=== PATIENT | female | born 1955 | race Caucasian/White ===

== ENCOUNTER 2018-04-18 17:12 | Emergency (ER) | payer OTHER ==
[~2018-04-18] VITALS: Ht 160 cm; Wt 55.0 kg
[2018-04-18] MEDS ORDERED: SODIUM CHLORIDE 0.9% 1,000 ML IV ONE (17:49)
[2018-04-18] MEDS ORDERED: LORAZEPAM 2MG/ML CPJ IV ONE (18:45)
[2018-04-18 18:55] LABS: BASOPHILS % 0.9 % (0.0-2.0); EOSINOPHILS % 1.5 % (0.0-5.0); HEMATOCRIT. 29.9 % (36.0-48.0); LYMPHOCYTES % 49.1 % (20.0-50.0); MEAN CORPUSCULAR HEMOGLOBIN 29.8 pg (28.0-32.0); MEAN CORPUSCULAR VOLUME 88.9 fL (81.0-99.0); MEAN PLATELET VOLUME 6.8 fl (7.4-10.4); NEUTROPHILS % 42.5 % (40.0-76.0); PLATELET 239 x1000/uL (130-400); RED BLOOD CELL COUNT 3.36 mill/uL (4.2-5.4); RED CELL DISTRIBUTION WIDTH 17.9 % (11.6-14.6)
[2018-04-18] MEDS ORDERED: LORAZEPAM 2MG/ML CPJ IM ONE (19:00)
[2018-04-18 19:02] LABS: INR 1.1
[2018-04-18 19:03] LABS: CHLORIDE 106 mEq/L (98-107)
[2018-04-18 19:07] LABS: ETHANOL BLOOD 259 mg/dL
[2018-04-18 19:11] LABS: AMMONIA 29 uMol/L (<32)
[2018-04-18 19:12] LABS: CREATINE KINASE 80 IU/L (26-192)
[2018-04-18 19:14] LABS: CARBAMAZEPINE < 0.5 ug/mL (4-12); VALPROIC ACID < 3.0 ug/mL (50-100)
[2018-04-18 19:16] LABS: PHENOBARBITAL < 2.1 ug/mL (15.0-40.0)
[2018-04-18 20:07] LABS: BG BASE EXCESS -2.8 mmol/L (-2.0-2.0); BG CARBOXYHEMOGLOBIN 0.3 % (0.5-1.5); BG DEOXYHEMOGLOBIN 9.9 % (0.0-5.0); BG FRACTION INSPIRED OXYGEN 21; BG HCO3 ACT 22.3 mmol/L (22.0-26.0); BG METHEMOGLOBIN 0.4 % (0.0-1.5); BG OXYHEMOGLOBIN 89.4 % (94.0-97.0); BG PH 7.365 (7.350-7.450); BG PO2 67.9 mmHg (75.0-100.0); BG SAMPLE SITE LEFT RADIAL; BG TOTAL HEMOGLOBIN 10.5 g/dL (12.0-18.0); BG VENT MODE ROOM AIR
[2018-04-18] MEDS ORDERED: FOLIC ACID 1 MG, THIAMINE HCL 100 MG, MVI, ADULT NO.1 10 ML in DEXTROSE 5% WATER 1,000 ML IV ONE ×4 (20:45)
[2018-04-18] MEDS ORDERED: KCL 20MEQ/100ML PREMIX 100 ML IV ONE (20:45)
[2018-04-19 05:15] VITALS: BP 127/51
== END 2018-04-19 05:45 | disposition home or self-care (01) ==
LOC: ER 18:07
DX: G93.40 Encephalopathy, unspecified (principal); E86.0 Dehydration; T51.91XA Toxic effect of unspecified alcohol, accidental (unintentional), initial encounter; Y92.9 Unspecified place or not applicable; I10 Essential (primary) hypertension; R56.9 Unspecified convulsions; F10.20 Alcohol dependence, uncomplicated; Y90.8 Blood alcohol level of 240 mg/100 ml or more
CPT/HCPCS: 36415; 36600; 70450; 71045; 80053; 80156; 80165; 80184; 80185; 82140; 82375; 82550; 82805; 82962; 83605; 84443; 84484; 85025; 85610; 93005; 96365; 96372; 99285; G0482; J2060; J3411; J3480; J3490; J7030; J7070; Z7610; A4315

== ENCOUNTER 2018-04-19 12:04 | Emergency (ER) | payer OTHER ==
[~2018-04-19] VITALS: Ht 157.5 cm; Wt 68.0 kg
[2018-04-19 17:47] LABS: BASOPHILS % 0.9 % (0.0-2.0); EOSINOPHILS % 1.4 % (0.0-5.0); HEMATOCRIT. 30.9 % (36.0-48.0); HEMOGLOBIN. 10.3 g/dL (12.0-16.0); LYMPHOCYTES % 46.9 % (20.0-50.0); MEAN CORPUSCULAR HEMOGLOBIN 29.4 pg (28.0-32.0); MEAN CORPUSCULAR VOLUME 88.5 fL (81.0-99.0); MEAN PLATELET VOLUME 6.6 fl (7.4-10.4); MONOCYTES % 7.2 % (2.0-8.0); NEUTROPHILS % 43.6 % (40.0-76.0); PLATELET 220 x1000/uL (130-400); RED CELL DISTRIBUTION WIDTH 17.8 % (11.6-14.6)
[2018-04-19 17:53] LABS: CHLORIDE 106 mEq/L (98-107)
[2018-04-19 17:54] LABS: INR 1.1; PROTHROMBIN TIME 11.4 sec (9.4-11.6)
[2018-04-19 17:58] LABS: HCG SCREEN NEGATIVE
[2018-04-20 09:10] VITALS: BP 133/82
== END 2018-04-20 09:25 | disposition home or self-care (01) ==
LOC: ER 12:04
DX: F10.229 Alcohol dependence with intoxication, unspecified (principal); I10 Essential (primary) hypertension; R79.1 Abnormal coagulation profile
CPT/HCPCS: 36415; 70450; 80053; 80307; 80329; 84703; 85025; 85610; 93005; 99285; G0482; Z7610

== ENCOUNTER 2018-04-21 12:25 | Inpatient (IN) | payer OTHER ==
[~2018-04-21] VITALS: Ht 162.6 cm; Wt 56.2 kg
[2018-04-21 14:56] LABS: CLARITY URINE CLEAR (CLEAR); COLOR URINE YELLOW (YELLOW); KETONES URINE NEGATIVE (NEGATIVE); LEUKOCYTE ESTERASE URINE 2+ (NEGATIVE); NITRITE URINE NEGATIVE (NEGATIVE); OCCULT BLOOD URINE NEGATIVE (NEGATIVE); PH URINE 6.5 (4.5-8.0); PROTEIN URINE NEGATIVE (NEGATIVE); SPECIFIC GRAVITY URINE 1.003 (1.005-1.030); UROBILINOGEN URINE 0.2 E.U./dL (0.2-1.0)
[2018-04-21 15:00] LABS: BASOPHILS % 0.5 % (0.0-2.0); EOSINOPHILS % 0.9 % (0.0-5.0); HEMATOCRIT. 33.5 % (36.0-48.0); HEMOGLOBIN. 11.1 g/dL (12.0-16.0); LYMPHOCYTES % 21.1 % (20.0-50.0); MEAN CORPUSCULAR HEMOGLOBIN 29.4 pg (28.0-32.0); MEAN CORPUSCULAR VOLUME 88.5 fL (81.0-99.0); MEAN PLATELET VOLUME 7.1 fl (7.4-10.4); MONOCYTES % 8.2 % (2.0-8.0); NEUTROPHILS % 69.3 % (40.0-76.0); PLATELET 215 x1000/uL (130-400); RED BLOOD CELL COUNT 3.79 mill/uL (4.2-5.4); RED CELL DISTRIBUTION WIDTH 17.6 % (11.6-14.6)
[2018-04-21 15:06] LABS: CHLORIDE 99 mEq/L (98-107); INR 1.1; PROTHROMBIN TIME 11.8 sec (9.4-11.6)
[2018-04-21 15:11] LABS: ETHANOL BLOOD 136 mg/dL
[2018-04-21 15:13] LABS: *AMPHETAMINES SCREEN URINE NEGATIVE (NEGATIVE); *BARBITURATES SCREEN URINE NEGATIVE (NEGATIVE); CANNABINOID URINE SCREEN NEGATIVE (NEGATIVE); OPIATES URINE SCREEN NEGATIVE (NEGATIVE); PHENCYCLIDINE URINE SCREEN NEGATIVE (NEGATIVE)
[2018-04-21 15:14] LABS: *BENZODIAZEPINES SCREEN URINE NEGATIVE (NEGATIVE); *COCAINE SCREEN URINE PRESUMTIVE POSITIVE (NEGATIVE); METHADONE URINE SCREEN NEGATIVE (NEGATIVE)
[2018-04-21] MEDS: VANCOMYCIN 1 G PREMIX 200 ML IV SCH ×2 (15:44→16:57)
[2018-04-21] MEDS ORDERED: SODIUM CHLORIDE 0.9% 1000ML BAG (SEPSIS BOLUS) IV ONE (15:45)
[2018-04-21] MEDS ORDERED: PIPERACILLIN/TAZOBACTAM 3.375GM/50ML PREMIX IV ONE (15:45)
[2018-04-21] MEDS ORDERED: VANCOMYCIN 1 G PREMIX 200 ML IV SCH (16:45)
[2018-04-21] MEDS ORDERED: ACETAMINOPHEN 325MG TABLET PO PRN (16:45)
[2018-04-21] MEDS ORDERED: DOCUSATE SODIUM 100MG CAPSULE PO PRN (16:45)
[2018-04-21] MEDS ORDERED: IPRATROPIUM/ALBUTEROL 0.5-3(2.5)MG/3ML NEB INH PRN (16:45)
[2018-04-21] MEDS ORDERED: HYDROCODONE/APAP 7.5/325MG 1 TAB TABLET PO PRN (16:45)
[2018-04-21] MEDS ORDERED: ONDANSETRON HCL 4MG/2ML VIAL IV PRN (16:45)
[2018-04-21] MEDS ORDERED: CLONIDINE 0.1MG TABLET PO PRN (16:45)
[2018-04-21 18:40] VITALS: BP 128/76
[2018-04-21 20:00] VITALS: BP 132/83
[2018-04-21 20:45] VITALS: BP 132/71
[2018-04-21] MEDS ORDERED: LEVOFLOXACIN 500MG PREMIX 100 ML IV SCH (21:00)
[2018-04-21] MEDS: ENOXAPARIN 40MG/0.4ML SYR SUBCUT SCH (21:04)
[2018-04-21] MEDS: VANCOMYCIN 750 MG PREMIX 150 ML IV SCH (22:36)
[2018-04-22] VITALS: BP 120/66
[2018-04-22 04:00] VITALS: BP 140/81
[2018-04-22 07:31] LABS: BASOPHILS % 0.7 % (0.0-2.0); EOSINOPHILS % 2.3 % (0.0-5.0); HEMOGLOBIN. 10.6 g/dL (12.0-16.0); LYMPHOCYTES % 28.8 % (20.0-50.0); MEAN CORPUSCULAR HEMOGLOBIN 29.7 pg (28.0-32.0); MEAN CORPUSCULAR VOLUME 89.7 fL (81.0-99.0); MEAN PLATELET VOLUME 7.7 fl (7.4-10.4); MONOCYTES % 10.1 % (2.0-8.0); NEUTROPHILS % 58.1 % (40.0-76.0); PLATELET 171 x1000/uL (130-400); RED BLOOD CELL COUNT 3.57 mill/uL (4.2-5.4); RED CELL DISTRIBUTION WIDTH 17.5 % (11.6-14.6)
[2018-04-22 07:59] VITALS: BP 140/95
[2018-04-22 08:13] LABS: CHLORIDE 103 mEq/L (98-107)
[2018-04-22] MEDS: ASPIRIN 81MG EC TABLET PO SCH (09:26)
[2018-04-22] MEDS: AMLODIPINE 10MG TABLET PO SCH (09:27)
[2018-04-22] MEDS: VANCOMYCIN 750 MG PREMIX 150 ML IV SCH (09:27)
[2018-04-22 12:00] VITALS: BP_SYST 77
[2018-04-22 16:00] VITALS: BP 142/83
[2018-04-22 20:00] VITALS: BP 124/85
[2018-04-22] MEDS: ENOXAPARIN 40MG/0.4ML SYR SUBCUT SCH (20:48)
[2018-04-22] MEDS ORDERED: VANCOMYCIN 1 G PREMIX 200 ML IV SCH (21:00)
[2018-04-22] MEDS ORDERED: LEVOFLOXACIN 500MG PREMIX 100 ML IV SCH (21:00)
[2018-04-23] VITALS (7 sets, daily range): BP systolic 108–175; BP diastolic 71–92
[2018-04-23] MEDS: ASPIRIN 81MG EC TABLET PO SCH (09:29)
[2018-04-23] MEDS: AMLODIPINE 10MG TABLET PO SCH (09:29)
[2018-04-23] MEDS ORDERED: LORAZEPAM 2MG/ML CPJ IV PRN (11:00)
[2018-04-23] MEDS ORDERED: VANCOMYCIN 750 MG PREMIX 150 ML IV SCH (16:00)
[2018-04-23] MEDS: ENOXAPARIN 40MG/0.4ML SYR SUBCUT SCH (19:43)
== END 2018-04-23 21:25 | disposition short-term general hospital (02) | DRG 383 ==
LOC: ER 13:29 → 8WST 16:26 → SUPCPDRO 16:37 → CANRESERV 17:15 → ENRESERV 17:15 → EDBEDREQSVC 17:48 → EDBEDREQTM 17:48 → ENRESERV 17:53
PROVIDERS: ADMIT Hospitalist; ATTEND Hospitalist
DX: L03.114 Cellulitis of left upper limb (principal); R56.9 Unspecified convulsions; K74.60 Unspecified cirrhosis of liver; M17.0 Bilateral primary osteoarthritis of knee; F10.20 Alcohol dependence, uncomplicated; B19.20 Unspecified viral hepatitis C without hepatic coma; I10 Essential (primary) hypertension; G89.29 Other chronic pain; F17.200 Nicotine dependence, unspecified, uncomplicated
CPT/HCPCS: 36415; 73130; 73562; 80053; 80202; 80305; 81003; 83605; 84550; 85025; 85610; 87040; 87086; 87493; 93970; C1893; G0482; J1650; J1956; J2060; J2543; J3370; J7030; J7040

== ENCOUNTER 2018-05-10 14:54 | Emergency (ER) | payer OTHER ==
[~2018-05-10] VITALS: Ht 165.1 cm; Wt 67.0 kg
[2018-05-10] MEDS ORDERED: SODIUM CHLORIDE 0.9% 1,000 ML IV ONE (16:45)
[2018-05-10 19:25] LABS: BASOPHILS % 1.3 % (0.0-2.0); EOSINOPHILS % 3.2 % (0.0-5.0); HEMATOCRIT. 27.2 % (36.0-48.0); LYMPHOCYTES % 43.5 % (20.0-50.0); MEAN CORPUSCULAR VOLUME 90.8 fL (81.0-99.0); MEAN PLATELET VOLUME 7.8 fl (7.4-10.4); MONOCYTES % 9.5 % (2.0-8.0); NEUTROPHILS % 42.5 % (40.0-76.0); PLATELET 211 x1000/uL (130-400)
[2018-05-10 19:27] LABS: CHLORIDE 109 mEq/L (98-107)
[2018-05-10 19:32] LABS: ETHANOL BLOOD 108 mg/dL
[2018-05-10] MEDS ORDERED: IBUPROFEN 400MG TABLET PO ONE (20:15)
[2018-05-10 20:28] VITALS: BP 112/62
[2018-05-17] MEDS ORDERED: KEPP250 PO (14:45)
[2018-05-17] MEDS ORDERED: FOLI-43 PO (14:45)
[2018-05-17] MEDS ORDERED: THIA100T72 PO (14:45)
== END 2018-05-10 20:00 | disposition home or self-care (01) ==
LOC: ER 15:25
DX: M25.562 Pain in left knee (principal); G89.29 Other chronic pain; F10.20 Alcohol dependence, uncomplicated; D64.9 Anemia, unspecified; D72.819 Decreased white blood cell count, unspecified; Y90.5 Blood alcohol level of 100-119 mg/100 ml; Z86.19 Personal history of other infectious and parasitic diseases; Z98.890 Other specified postprocedural states
CPT/HCPCS: 36415; 80048; 82962; 85025; 99284; G0482; J7030

== ENCOUNTER 2018-08-31 13:58 | Emergency (ER) | payer OTHER ==
[~2018-08-31] VITALS: Ht 162.6 cm; Wt 66.0 kg
[~2018-08-31 13:58] MED LIST: FOLI-43 PO; KEPP250 PO; THIA100T72 PO
[2018-08-31] MEDS ORDERED: ONDANSETRON HCL 4MG/2ML INJ IV ONE (14:45)
[2018-08-31] MEDS ORDERED: LEVETIRACETAM 500MG PREMIX 100 ML IV ONE (14:45)
[2018-08-31] MEDS: FOLIC ACID 1 MG, THIAMINE HCL 100 MG, MVI, ADULT NO.1 10 ML in DEXTROSE 5% WATER 1,000 ML IV ONE ×8 (17:36→18:32)
[2018-09-01 05:20] LABS: CLARITY URINE CLEAR (CLEAR); COLOR URINE YELLOW (YELLOW); KETONES URINE NEGATIVE (NEGATIVE); LEUKOCYTE ESTERASE URINE 2+ (NEGATIVE); NITRITE URINE NEGATIVE (NEGATIVE); OCCULT BLOOD URINE NEGATIVE (NEGATIVE); PROTEIN URINE NEGATIVE (NEGATIVE); UROBILINOGEN URINE 0.2 E.U./dL (0.2-1.0)
[2018-09-01 05:56] LABS: *AMPHETAMINES SCREEN URINE NEGATIVE (NEGATIVE); *BARBITURATES SCREEN URINE NEGATIVE (NEGATIVE); *BENZODIAZEPINES SCREEN URINE NEGATIVE (NEGATIVE); *COCAINE SCREEN URINE NEGATIVE (NEGATIVE)
[2018-09-01 05:57] LABS: CANNABINOID URINE SCREEN NEGATIVE (NEGATIVE); METHADONE URINE SCREEN NEGATIVE (NEGATIVE); OPIATES URINE SCREEN NEGATIVE (NEGATIVE); PHENCYCLIDINE URINE SCREEN NEGATIVE (NEGATIVE)
[2018-09-01] MEDS ORDERED: LEVOFLOXACIN 500MG TABLET PO ONE (07:00)
[2018-09-01] MEDS ORDERED: LEVETIRACETAM 500MG TABLET PO ONE (07:00)
[2018-09-01 10:19] VITALS: BP 144/75
== END 2018-09-01 10:22 | disposition home or self-care (01) ==
LOC: ER 13:58
DX: T51.0X1A Toxic effect of ethanol, accidental (unintentional), initial encounter (principal); G92 Toxic encephalopathy; Y90.8 Blood alcohol level of 240 mg/100 ml or more; F10.229 Alcohol dependence with intoxication, unspecified; G40.909 Epilepsy, unspecified, not intractable, without status epilepticus; Y93.89 Activity, other specified; Y92.511 Restaurant or cafe as the place of occurrence of the external cause; Z59.0 Homelessness
CPT/HCPCS: 36415; 70450; 80305; 81003; 87077; 87086; 96365; 96366; 96368; 96375; 99285; G0482; J1953; J2405; J3411; J3490; J7070; J7030